=== PATIENT | female | born 1980 | race Caucasian/White ===

== ENCOUNTER → 2022-03-27 10:30 | Outpatient (CLI) | payer BC, SELFPAY ==
--- NOTE | ~2022-03-27 | XR_ITS ---
EXAM: XR finger 3rd RT min 2V HISTORY: M79.644 - Pain in right finger(s) . COMPARISON: None available. FINDINGS: Normal mineralization. Minimally comminuted, nondisplaced tuft fracture of the third digit . No lytic or blastic lesion. Joint spaces are maintained. No erosion or periosteal change. Soft tiss ues swelling over the distal third digit. IMPRESSION: Minimally comminuted nondisplaced third digit tuft fracture. Reviewed, dictated and finalized at location K.
== END ==
PROVIDERS: PCP Internal Medicine; Visit Provider Internal Medicine
DX: S62.602A Fracture of unspecified phalanx of right middle finger, initial encounter for closed fracture (principal); M79.89 Other specified soft tissue disorders
CPT/HCPCS: 73140